=== PATIENT | male | born 1950 | race Caucasian/White ===

== ENCOUNTER → 2016-04-11 | Outpatient (CLI) | payer BC | END | disposition home or self-care (01) | LOC: GMA 14:49 | PROVIDERS: ATTEND Nurse Practitioner Acute Care | DX: M10.00 Idiopathic gout, unspecified site (principal) ==

== ENCOUNTER → 2016-05-24 | Outpatient (CLI) | payer BC | END | disposition home or self-care (01) | LOC: GMAL 10:37 | PROVIDERS: ATTEND Family Medicine | DX: M10.9 Gout, unspecified (principal) ==

== ENCOUNTER → 2016-06-20 | Outpatient (CLI) | payer BC | END | disposition home or self-care (01) | LOC: GMAL 14:37 | PROVIDERS: ATTEND Family Medicine | DX: M10.9 Gout, unspecified (principal) ==

== ENCOUNTER → 2016-12-20 | Outpatient (CLI) | payer BC | END | disposition home or self-care (01) | LOC: GMAL 10:52 | PROVIDERS: ATTEND Family Medicine | DX: Z00.00 Encounter for general adult medical examination without abnormal findings (principal) ==

== ENCOUNTER → 2017-06-12 | Outpatient (CLI) | payer MEDICARE, OTHER | LOC: GMAJS 12:27 | PROVIDERS: ATTEND Physician Assistant | DX: M25.561 Pain in right knee (principal) ==

== ENCOUNTER → 2017-07-16 | Outpatient (CLI) | payer MEDICARE, OTHER | LOC: GMAL 11:32 | PROVIDERS: ATTEND Family Medicine | DX: M10.9 Gout, unspecified (principal) ==

== ENCOUNTER → 2017-08-17 | Outpatient (CLI) | payer MEDICARE, OTHER | LOC: GMAL 10:54 | PROVIDERS: ATTEND Family Medicine | DX: M10.00 Idiopathic gout, unspecified site (principal) ==

== ENCOUNTER → 2017-10-03 | Outpatient (CLI) | payer MEDICARE, OTHER | LOC: GMAL 10:51 | PROVIDERS: ATTEND Family Medicine | DX: M10.00 Idiopathic gout, unspecified site (principal) ==

== ENCOUNTER → 2017-11-02 | Outpatient (CLI) | payer MEDICARE, OTHER | LOC: GMAL 10:32 | PROVIDERS: ATTEND Family Medicine | DX: M10.00 Idiopathic gout, unspecified site (principal); F10.10 Alcohol abuse, uncomplicated; D50.9 Iron deficiency anemia, unspecified; R94.5 Abnormal results of liver function studies ==

== ENCOUNTER → 2017-12-03 | Outpatient (CLI) | payer MEDICARE, OTHER ==
--- NOTE | 2017-12-03 15:10 | US ---
EXAM DESCRIPTION: Liver: ULTRASOUND. CLINICAL HISTORY: ELEVATED LFT'S COMPARISON: Ultrasound liver 04/07/2015. No prior report. TECHNIQUE: Transabdominal scannin-dimensional and Doppler modes. FINDINGS: Gallbladder: normal size, shape, echogenicity; no intraluminal stones or sludge. No fluid around the gallbladder. No wall thickening. 2.1 mm. Non-tender with transducer pressure. Common bile duct: caliber 5.3 mm moderately dilated. Liver: normal echogenicity; contour liver capsule smooth where seen. No fluid around the liver. Intrahepatic biliary ducts normal caliber. Doppler hepatopedal flow portal vein. 7.4 mm caliber. Long axis right lobe 18.2 cm. Pancreas: normal size and echogenicity. Duct not seen. Right kidney: long axis measures 10.4 cm. Normal Echogenicity. Normal cortical thickness. No hydronephrosis IMPRESSION: 1. Normal echogenicity of the liver with mild enlargement. Normal ducts and vascularity. Smooth capsule with no ascites. Normal ultrasound of the gallbladder with no wall thickening and nontender. 2. Common bile duct dilated but no echogenic material within the lumen. Pancreas unremarkable with normal caliber of the duct. Consider radionuclide hepatobiliary imaging. 3. Ultrasound the right kidney was negative. Electronically signed by: Frandy Kim MD 12/03/2017 3:09 PM CDT
== END ==
LOC: US 09:32
PROVIDERS: ATTEND Family Medicine
DX: R94.5 Abnormal results of liver function studies (principal)

== ENCOUNTER → 2017-12-19 | Outpatient (CLI) | payer MEDICARE, OTHER ==
--- NOTE | 2017-12-19 14:56 | US ---
EXAM DESCRIPTION: Abdomen,Complete: Ultrasound. CLINICAL HISTORY: ABNORMAL RESULTS OF LIVER FUNCTION STUDIES COMPARISON: Ultrasound of the liver 12/03/2017. TECHNIQUE: Transabdominal scannin-dimensional and Doppler modes. FINDINGS: Gallbladder: Normal size with no intraluminal stones or sludge. Wall thickness 1 mm. No fluid. Nontender with transducer pressure. Common bile duct: 4 mm is normal caliber. Liver: Long axis of the right lobe 16.5 cm. Normal echogenicity. No intrahepatic biliary dilatation. Capsule is smooth. No ascites. Normal caliber of the portal vein with hepatopedal flow. Pancreas: Normal size and echogenicity. Duct not seen.. Abdominal aorta: Normal caliber from the proximal segment to the distal bifurcation. Minimal atherosclerotic wall changes. IVC: visualized; normal caliber. Spleen normal echogenicity; long axis measurement is 11.4 cm. Right kidney: 10.9 cm long axis. Normal cortical echogenicity. 11 mm cortical thickness. No hydronephrosis or perinephric fluid. Left kidney: 9.8 cm long axis. Normal cortical echogenicity and thickness except for lateral anterior wall in the upper pole which appears to be echogenic and atrophic. No hydronephrosis or perinephric edema. IMPRESSION: 1. Liver mildly enlarged but otherwise unremarkable. Stable since the prior study. 2. 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 Otherwise unremarkable. Normal ultrasound right kidney. 3. Normal gallbladder, ducts, and pancreas. Normal caliber of the abdominal aorta and IVC. Spleen is unremarkable. 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
== END ==
LOC: US 08:30
DX: R93.2 Abnormal findings on diagnostic imaging of liver and biliary tract (principal); R94.5 Abnormal results of liver function studies

== ENCOUNTER → 2018-06-04 | Outpatient (CLI) | payer MEDICARE, OTHER | LOC: LAB.O 09:27 | PROVIDERS: ATTEND Family Medicine | DX: R94.5 Abnormal results of liver function studies (principal); D50.8 Other iron deficiency anemias ==

== ENCOUNTER → 2018-12-18 | Outpatient (CLI) | payer MEDICARE, OTHER | LOC: GMAL 10:47 | PROVIDERS: ATTEND Family Medicine | DX: E53.8 Deficiency of other specified B group vitamins (principal); R53.83 Other fatigue; E55.9 Vitamin D deficiency, unspecified; M10.9 Gout, unspecified; R94.5 Abnormal results of liver function studies; Z79.899 Other long term (current) drug therapy; Z12.5 Encounter for screening for malignant neoplasm of prostate | CPT/HCPCS: 82306; 82607; 84443; 84550; G0103 ==

== ENCOUNTER 2019-02-13 11:32 | Emergency (ER) | payer MEDICARE, OTHER ==
[2019-02-13 12:51] VITALS: TEMP 97.7
--- NOTE | 2019-02-13 13:46 | CT ---
EXAM DESCRIPTION: Head CLINICAL HISTORY: trauma COMPARISON: None TECHNIQUE: Noncontrast transaxial CT images of the head are obtained from base to vertex. This exam was performed according to our departmental dose-optimization program, which includes automated exposure control, adjustment of the mA and/or kV according to patient size and/or use of iterative reconstruction technique. FINDINGS: The midline structures are not displaced. Sulci are age-appropriate. There are areas of decreased attenuation in the periventricular white matter and the white matter of the centrum semiovale. There is no evidence of mass, mass-effect, hydrocephalus, or acute intracranial hemorrhage. No abnormal extra axial fluid collection is seen. Moderate calcifications of the intracranial carotid arteries are seen. Bone windows show no evidence of depressed skull fracture. Mild scalp soft tissue increased attenuation and thickening over the left posterior vertex. The visualized paranasal sinuses are unremarkable. IMPRESSION: 1. Age-appropriate atrophy with evidence of old small vessel ischemic type changes seen. 2. Mild scalp soft tissue swelling and hematoma over the left posterior vertex. Electronically signed by: Romeo Castillo MD 02/13/2019 1:44 PM [facility]
--- NOTE | 2019-02-13 14:11 | RAD ---
EXAM DESCRIPTION: Chest,1 View CLINICAL HISTORY: syncope COMPARISON: None. IMPRESSION: Single AP portable upright view of the chest shows cardiac silhouette and pulmonary vasculature to be within normal limits. Lungs are normally aerated and clear. No obvious pleural effusion or pneumothorax is seen. 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
--- NOTE | 2019-02-13 14:19 | ED.PDOC ---
History of Present Illness - General Chief Complaint: Head Injury Stated Complaint: fell and hit head Time Seen by Provider: 02/13/19 13:20 Source: patient, family - History of Present Illness Initial Comments: 68-year-old male presents to the emergency department complaining of headache status post fall prior to arrival. The patient was getting up and walking into the bathroom and then the next thing he knows he woke up on the floor. His heard him call out and found him laying backwards on the tile floor with blood. The patient is unsure of what happened he denies any preceding chest pain or shortness of breath. He had no prodromal symptoms. Over the last 4 months the patient has had 2 other similar episodes. They have seen his primary care physician and so far have not determined any specific causes. Currently he is only complaining of pain on his scalp from his laceration which she rates as moderate in severity. He denies any other injuries or complaints at this time. Allergies/Adverse Reactions: Allergies NO KNOWN ALLERGY Allergy (Verified 02/13/19 12:51) Home Medications: Ambulatory Orders Donepezil HCl [Aricept] 5 mg PO DAILY 11/22/15 Fluticasone/Salmeterol 100/50 [Advair Diskus] 1 puff INH DAILY 11/22/15 Memantine HCl [Namenda] 5 mg PO DAILY 11/22/15 Review of Systems - Review of Systems Constitutional: Denies: chills, fever EENTM: Denies: nose congestion, throat pain, throat swelling Respiratory: Denies: cough, short of breath, stridor Cardiology: States: syncope. Denies: chest pain, edema, palpitations Gastrointestinal/Abdominal: Denies: abdominal pain, diarrhea, nausea Genitourinary: Denies: dysuria, hematuria Musculoskeletal: Denies: joint swelling, muscle pain, muscle stiffness Skin: States: other - scalp lac. Denies: rash Neurological: States: headache. Denies: numbness, paresthesia, weakness Past Medical History (General) - Patient Medical History Hx Asthma: Yes Hx Congestive Heart Failure: No Hx Diabetes: No Hx Cancer: No - skin Hx Hepatitis C: No Hx MRSA: No - Vaccination History Hx Tetanus, Diphtheria Vaccination: No Hx Influenza Vaccination: Yes - Social History Hx Tobacco Use: No Hx Alcohol Use: Yes Hx Substance Use: No Hx Substance Use Treatment: No Hx Depression: No - Female History Patient is a Female of Child Bearing Age (10 -59 yrs old): No Family Medical History - Family History Mother Family History: Unknown Physical Exam - Physical Exam General Appearance: Alert, No apparent distress, Well Developed, Well Nourished Eye Exam: bilateral normal Ears, Nose, Throat: normal ENT inspection, normal pharynx Neck: non-tender, full range of motion, supple, normal inspection Respiratory: lungs clear, normal breath sounds, no respiratory distress Cardiovascular/Chest: normal peripheral pulses, no edema, no murmur, bradycardia Peripheral Pulses: radial,right: 2+, radial,left: 2+, dorsalis pedis,right: 2+, dorsalis pedis,left: 2+ Gastrointestinal/Abdominal: normal bowel sounds, non tender, soft Back Exam: normal inspection, no vertebral tenderness Extremity: normal range of motion, non-tender, normal inspection, no pedal edema 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 The patient is voiced understanding and agrees. 02/13/19 16:29 Repeat troponin test results discussed with patient we discussed option for admission but the patient will prefer to be discharged home and will follow up with cardiology on an outpatient basis. He is encouraged to return to the emergency department for any recurrent syncopal episodes or any other concerning signs or symptoms. He and his have both voiced understanding and agreed with treatment plan. - Results/Orders Results/Orders: EKG interpreted by myself at 1338. Sinus bradycardia rate 59. Normal axis. Normal intervals. No ST elevation in no acute ischemic changes. CXR: IMPRESSION: Single AP portable upright view of the chest shows cardiac lamin houette and pulmonary vasculature to be within normal limits. Lungs are normally aerated and clear. No obvious pleural effusion or pneumothorax is seen. Electronically signed by: Romeo Castillo MD 02/13/2019 2:09 PM FILLING SEPARATOR Workstation: [employer] CT Head: IMPRESSION: 1. Age-appropriate atrophy with evidence of old small vessel ischemic type changes seen. 2. Mild scalp soft tissue swelling and hematoma over the left posterior vertex. Electronically signed by: Romeo Castillo MD 02/13/2019 1:44 PM FILLING SEPARATOR Workstation: [id number] - EKG/XRAY/CT CT Ordered: No CT Interpretation Call Back: No Procedures - Laceration/Wound Repair Occipital Wound Length (cm): 4 Wound's Depth, Shape: superficial Wound Explored: no foreign body removed Wound Repaired With: heladio - total of 5 heladio Departure - Departure Clinical Impression: Syncope Qualifiers: Syncope type: unspecified Qualified Code(s): R55 - Syncope and collapse Scalp laceration Qualifiers: Encounter type: initial encounter Qualified Code(s): S01.01XA - Laceration without foreign body of scalp, initial encounter Time of Disposition: 16:25 Disposition: Discharge to Home or Self Care Condition: Fair Departure Forms: ED Discharge - Pt. Copy, Patient Portal Self Enrollment Instructions: DI for Concussion, Syncope (Fainting), Laceration Repair With [place] (DC) Referrals: Mir Guy III, MD [Primary Care Provider] - 1-2 Days CONSTANTIN BAUM MD [Consulting Staff] - 1-5 Days Home Medications: Ambulatory Orders Donepezil HCl [Aricept] 5 mg PO DAILY 11/22/15 Fluticasone/Salmeterol 100/50 [Advair Diskus] 1 puff INH DAILY 11/22/15 Memantine HCl [Namenda] 5 mg PO DAILY 11/22/15 Additional Instructions: Follow-up with her primary care physician as discussed as well as cardiology. Return to the emergency department for any signs of infection or any other concerns. Follow up with either your primary care or return to the emergency department in 1 week for staple removal.
[2019-02-13 15:05] VITALS: O2SAT 98
[2019-02-13 16:49] VITALS: BP 145/81
== END 2019-02-13 16:49 | disposition home or self-care (01) ==
LOC: ER 11:32
DX: S01.01XA Laceration without foreign body of scalp, initial encounter (principal); R55 Syncope and collapse; R00.1 Bradycardia, unspecified; J45.909 Unspecified asthma, uncomplicated; W18.30XA Fall on same level, unspecified, initial encounter; Z92.89 Personal history of other medical treatment

== ENCOUNTER → 2019-04-03 | Outpatient (CLI) | payer MEDICARE, OTHER ==
--- NOTE | 2019-04-04 10:57 | MRI ---
EXAM DESCRIPTION: Brain w/o Contrast: MRI. CLINICAL HISTORY: CEREBROVASCULAR DISEASE COMPARISON: MRA brain on the same visit. TECHNIQUE: Multiplanar, high-field MRI unit, multiple diffusion sequences, multiple conventional sequences without contrast. FINDINGS: Minimally hyperintense FLAIR and T2-weighted signal in the periventricular white matter of the frontoparietal and occipital lobes bilaterally symmetric. Focal subcortical hyperintense T2 and FLAIR signal in the left occipital lobe, bilateral frontal lobes, and the right parietal lobe.. No hemorrhage, no cerebral edema, no midline shift.. Normal signal in the bilateral basal ganglia. Normal signal in the brainstem and cerebellar hemispheres. Concordance of the diffusion and non-diffusion sequences with no diffusion restriction. Cortical sulci, ventricles, and other CSF spaces, and the subdural spaces are normally configured for the patient's age. No effacement or displacement. No midline shift. No extra-axial hemorrhage. Normal flow signal void in the major vessels of the ewiiaapaayp Hayes, and the venous sinuses. IACs are symmetric bilaterally. Normal signal in the bilateral mastoid air cells. No mass effect in the bilateral cerebellopontine angles. Pituitary gland occupies most of the sella. Base of the cerebellar tonsils is just above the foramen magnum. Minimal mucoperiosteal thickening in the paranasal sinuses.. The bony calvarium is intact. IMPRESSION: 1. Abnormal white matter signal changes most likely related to cerebral microvascular disease, and/or aging. No mass effect, no midline shift, no cerebral edema, no intra-axial or extra-axial hemorrhage. 2. No diffusion restriction within normal MRI diffusion scan, and no evidence of acute or subacute infarction. 3. Chronic mild paranasal sinusitis. Electronically signed by: Frandy Kim MD 04/04/2019 10:55 AM [facility]
--- NOTE | 2019-04-04 11:07 | MRI ---
EXAM DESCRIPTION: MRA Head and/or Neck CLINICAL HISTORY: CEREBROVASCULAR DISEASE COMPARISON: MRI scan of the brain without gadolinium IV contrast the same visit. TECHNIQUE: 3D [id number] thin-section axial acquisitions through the base of the skull and the kasaan Hayes. Non contrast. MIP reconstructions. FINDINGS: Scans through the anterior and posterior circulations showing no significant stenosis and no aneurysm. No mass effect or vasculitis. Bilateral petrous segments of the internal carotid arteries and the carotid siphons and supraclinoid segments negative. Bilateral anterior communicating arteries larger on the right than the left. Right PICA vessel originating from the distal right vertebral artery but no left PICA is visualized which may be originating below the inferior margin of the study. Vertebral arteries are symmetric. Bilateral AICA vessels and superior cerebellar vessels are visualized. The anterior communicating vessels join the proximal bilateral posterior cerebral arteries. No abnormal MRA vascular blush. IMPRESSION: Findings in the MRA study of the brain are within the range of normal, with no aneurysm, no stenosis, no mass effect, no vasculitis, and no MRA vascular blush. Please refer to above details. Electronically signed by: Frandy Kim MD 04/04/2019 11:05 AM [facility]
== END ==
LOC: MRI 08:00
PROVIDERS: ATTEND Psychiatry & Neurology Neurology
DX: I67.9 Cerebrovascular disease, unspecified (principal); M50.122 Cervical disc disorder at C5-C6 level with radiculopathy; R90.82 White matter disease, unspecified; J32.9 Chronic sinusitis, unspecified

== ENCOUNTER → 2019-06-19 | Outpatient (CLI) | payer MEDICARE, OTHER | LOC: GMAL 11:29 | PROVIDERS: ATTEND Family Medicine | DX: M10.9 Gout, unspecified (principal); Z79.899 Other long term (current) drug therapy ==

== ENCOUNTER → 2019-07-02 | Outpatient (CLI) | payer MEDICARE, OTHER ==
--- NOTE | 2019-07-02 15:07 | CT ---
EXAM DESCRIPTION: Cervical Spine: Computed Tomography. CLINICAL HISTORY: 69 years Male CERVICAL SPONDYLOSIS COMPARISON: MRI scan cervical spine April 07. TECHNIQUE: Spiral, axial 2.5 x 2.5 mm scans through the cervical spine without contrast. Coronal and sagittal 2.0 mm Reconstructions. Total Exam DLP: 376 mGy-cm. This exam was performed according to our departmental dose-optimization program which includes automated exposure control, adjustment of the mA and/or kV according to patient size and/or use of iterative reconstruction technique; to reduce radiation dose to as low as reasonably achievable (ALARA). FINDINGS: Moderate arthrosis atlantoaxial joint and bilateral atlantooccipital joint, more on the left with a lateral C1 sub-endplate cyst. No soft tissue swelling or posterior displacement of the anterior ligament below the foramen magnum. Minimal offset bilateral C1-C2 facets. No significant disc bulge. C2-C3: Disc space maintained. No significant disc bulging. Bilateral facet arthrosis and moderate on the right and mild on the left. Mild right neural foraminal narrowing. Trace anterolisthesis. C3-C4: Significant disc space loss with calcification in the disc space 2.5 mm grade 1 anterolisthesis. Anterior endplate ridging. No posterior disc bulge. Mild facet arthrosis on the right and moderate facet arthrosis and hypertrophy on the left with moderate to severe left neural foraminal narrowing. Mild canal narrowing with right neuroforamen patent. C4-C5: Moderate endplate reactive changes more severe peripherally and anterior. Tiny posterior disc bulge in the midline. Bilateral uncinate spurs. Bilateral facet hypertrophic arthrosis and mild on the left and moderate on the right. Mild to moderate left neural foraminal narrowing and borderline right neural foraminal stenosis. Moderate canal narrowing. C5-C6: Moderate to severe disc space loss with disc remnant bulging and anterior ridging. Possible disc remnant bulging posterior with endplate spurs. Bilateral uncinate spurs larger on the right. Minimal subluxation of the right facet joint with arthrosis. Moderate arthrosis on the left. Right neural foraminal stenosis and moderate to severe left neural foraminal narrowing. Mild canal narrowing. C6-C7: Moderate disc space loss mid and anterior in severe posterior disc space loss with osteophytes bulging into the canal. Moderate endplate reactive changes and desiccated disc gas formation anterior. Bilateral uncinate spurs. Bilateral neural foraminal stenosis more on the left. Bilateral hypertrophic facet arthrosis more severe on the left. C7-T1: Minimal disc space loss with anterior bulging and endplate ridging. More disc space loss posterior. 2 mm grade 1 anterolisthesis. Small uncinate spurs on the left. Moderate facet arthrosis and mild neural foraminal stenosis. Mild to moderate right facet degenerative hypertrophy and moderate neural foraminal narrowing. No canal stenosis. Spine is kyphotic C2-C5. No compression type vertebral body fractures. Posterior elements are preserved. C5-T1 dextroscoliosis. IMPRESSION: 1. Multiple levels of endplate spondylosis, spondylolisthesis, spur formation, moderate to severe disc space loss, and degenerative hypertrophy of the facet joints unilateral or bilateral. Most severe from C3-4 to C6-7. Unilateral neural foraminal stenosis at several levels. Correlate for radiculopathy. No canal stenosis. 2. Bilateral neural foraminal stenosis C6-C7. Please see details above. Electronically signed by: Frandy Kim MD 07/02/2019 3:06 PM CDT
== END ==
LOC: CT 08:34
PROVIDERS: ATTEND Neurological Surgery
DX: M47.12 Other spondylosis with myelopathy, cervical region (principal); M43.12 Spondylolisthesis, cervical region; M46.92 Unspecified inflammatory spondylopathy, cervical region; M50.31 Other cervical disc degeneration, high cervical region; M50.321 Other cervical disc degeneration at C4-C5 level; M50.323 Other cervical disc degeneration at C6-C7 level; M99.51 Intervertebral disc stenosis of neural canal of cervical region; M25.78 Osteophyte, vertebrae

== ENCOUNTER → 2019-08-27 | Outpatient (CLI) | payer MEDICARE, OTHER ==
--- NOTE | 2019-08-28 07:58 | RAD ---
EXAM DESCRIPTION: Cervical Spine x-ray, 2 Views CLINICAL HISTORY: CERVICALIGIA COMPARISON: None Available. TECHNIQUE: AP/lateral x-ray views of the cervical spine FINDINGS: Anatomic alignment of cervical vertebrae is seen on lateral view with visualization of C1-T1. Plate and screws with multilevel anterior interbody fusion C4-C7. Above the fusion construct, C3-4 disc space appears narrowed without significant osteophyte formation. Degenerative narrowing of C7-T1 is seen with slight degenerative anterolisthesis of C7 on T1 measuring 2.5 mm. Degenerative narrowing of the atlantodens interval. No fracture or subluxation. No prevertebral soft tissue swelling. Normal craniocervical alignment. There is preservation of the spinal laminar line. No spinous process avulsion. AP view shows normal spinous process alignment with normal alignment of the lateral masses. Lung apices are clear. IMPRESSION: Negative for fracture or posttraumatic subluxation. Electronically signed by: Graeme August MD 08/28/2019 7:57 AM CDT
== END ==
LOC: RAD 13:02
PROVIDERS: ATTEND Neurological Surgery
DX: M54.2 Cervicalgia (principal)

== ENCOUNTER → 2020-01-08 | Outpatient (CLI) | payer MEDICARE, OTHER | LOC: GMAL 10:57 | PROVIDERS: ATTEND Family Medicine | DX: E55.9 Vitamin D deficiency, unspecified (principal); M10.9 Gout, unspecified; Z12.5 Encounter for screening for malignant neoplasm of prostate; R73.9 Hyperglycemia, unspecified; Z79.899 Other long term (current) drug therapy | CPT/HCPCS: 82306; 84550; G0103 ==